=== PATIENT | female | born 1935 | race African-American/Black ===

== ENCOUNTER 2018-06-21 15:41 | Emergency (ER) | payer BC, MEDICARE ==
[~2018-06-21] VITALS: Ht 162.6 cm; Wt 60.0 kg
[2018-06-21] MEDS ORDERED: LORAZEPAM 0.5MG TABLET PO ONE (17:15)
[2018-06-21 17:19] LABS: BASOPHILS % 0.4 % (0.0-2.0); EOSINOPHILS % 0.7 % (0.0-5.0); HEMATOCRIT. 38.2 % (36.0-48.0); HEMOGLOBIN. 12.9 g/dL (12.0-16.0); LYMPHOCYTES % 16.8 % (20.0-50.0); MEAN CORPUSCULAR HEMOGLOBIN 35.2 pg (28.0-32.0); MEAN CORPUSCULAR VOLUME 104.3 fL (81.0-99.0); MEAN PLATELET VOLUME 8.2 fl (7.4-10.4); MONOCYTES % 4.8 % (2.0-8.0); NEUTROPHILS % 77.3 % (40.0-76.0); PLATELET 203 x1000/uL (130-400); RED BLOOD CELL COUNT 3.66 mill/uL (4.2-5.4)
[2018-06-21 17:26] LABS: CHLORIDE 108 mEq/L (98-107)
[2018-06-21 18:01] LABS: CLARITY URINE CLEAR (CLEAR); COLOR URINE YELLOW (YELLOW); KETONES URINE NEGATIVE (NEGATIVE); LEUKOCYTE ESTERASE URINE 1+ (NEGATIVE); NITRITE URINE NEGATIVE (NEGATIVE); OCCULT BLOOD URINE NEGATIVE (NEGATIVE); PROTEIN URINE NEGATIVE (NEGATIVE); SPECIFIC GRAVITY URINE 1.007 (1.005-1.030); UROBILINOGEN URINE 0.2 E.U./dL (0.2-1.0)
[2018-06-21 20:54] VITALS: BP 146/62
== END 2018-06-21 20:57 | disposition left against medical advice (07) ==
LOC: ER 17:13 → CANBEDREQ 21:29
DX: R53.1 Weakness (principal); R61 Generalized hyperhidrosis; R42 Dizziness and giddiness; I10 Essential (primary) hypertension; E78.00 Pure hypercholesterolemia, unspecified
CPT/HCPCS: 36415; 71045; 80053; 81003; 83880; 84484; 85025; 93005; 99285